=== PATIENT | female | born 1960 | race Caucasian/White ===

== ENCOUNTER → 2023-03-27 06:28 | Day surgery (SDC) | payer BC, SELFPAY | LOC: GI 06:28 | PROVIDERS: ATTENDING PHYSICIAN Specialist; FAMILY PHYSICIAN Family Medicine | DX: Z12.11 Encounter for screening for malignant neoplasm of colon (principal); Z98.0 Intestinal bypass and anastomosis status; K57.30 Diverticulosis of large intestine without perforation or abscess without bleeding; Z86.010 Personal history of colon polyps | CPT/HCPCS: G0105 ==

== ENCOUNTER → 2023-04-15 10:48 | Outpatient (REF) | payer BC, SELFPAY | LOC: HWRAD 10:48 | PROVIDERS: ATTENDING PHYSICIAN Family Medicine | DX: M25.552 Pain in left hip (principal) | CPT/HCPCS: 73502 ==

== ENCOUNTER → 2023-10-10 07:17 | Outpatient (REF) | payer BC, SELFPAY | LOC: HWWDC 07:17 | PROVIDERS: ATTENDING PHYSICIAN Nurse Practitioner Adult Health; FAMILY PHYSICIAN Family Medicine | DX: Z12.31 Encounter for screening mammogram for malignant neoplasm of breast (principal) | CPT/HCPCS: 77063; 77067 ==

== ENCOUNTER 2024-04-25 10:23 | Emergency (ER) | payer BC, SELFPAY ==
[2024-04-25 10:27] VITALS: BP 166/79
[2024-04-25 11:00] VITALS: BMI 31.2
--- NOTE | 2024-04-25 11:05 | ED.GENMED ---
History of Present Illness
General
Chief Complaint: Fall
Source: patient
Exam Limitations: none
Time Seen by Provider: 04/25/24 10:57
Nursing documentation reviewed up to this point in time: agreed with
History of Present Illness
History of Present Illness:
Patient is a 64-year-old female who presents to the ER complaining of right shoulder pain. She reports she tripped and tried to brace her fall with her arm and landed on the outstretched arm and now complains of right shoulder pain. She denies any
neck back pain. She denies hitting her head no other injuries or complaints.
Past History
Past History
ED Past Medical History: HTN
Social History
Tobacco: Non-smoker
Alcohol: Occasional
Family History
Family History: Negative Diabetes, Hypertension or CAD
Review of Systems
Review of Systems
Allergies reviewed?: Yes
All Other Systems: ROS reviewed and negative except as documented in HPI and ROS
Constitutional: Reports no symptoms
Musculoskeletal: Reports other (right shoulder pain )
Skin: Reports no symptoms
Psychiatric: Reports no symptoms
Phy Exam
General Physical Exam
General Presentation: no apparent distress
General age: appears stated age
General Skin: warm and dry
General Habitus: normal
General Mental: alert
General Hydration: appears well hydrated
Neurological Exam
Neurological Exam: alert and oriented x3
Musculoskeletal Exam
Musculoskeletal Exam: other (non tender to right shoulder; no bony tenderness no swelling no ecchymosis; pain with shoulder abduction strong distal pulses )
Skin Exam
Skin Exam: normal color and warm/dry
Psychiatric Exam
Psychiatric Exam: normal mood/affect
Course
Orders/Labs/Results
Orders:
Orders
04/25/24 11:04
Shoulder, Right, Trauma [CR Shoulder, Trauma - Right] Urgent
Comment:
Reason For Exam: trauma
04/25/24 11:54
Sling Right-Treatment ONCE
Vital Signs
Initial and Last Documented VS:
Initial Vital Signs
Temp Pulse Resp BP Pulse Ox
97.9 F 61 16 166/79 99
04/25/24 10:27 04/25/24 10:27 04/25/24 10:27 04/25/24 10:27 04/25/24 10:27
Last Documented Vital Signs
Temp Pulse Resp BP Pulse Ox
97.9 F 61 16 166/79 99
04/25/24 10:27 04/25/24 10:27 04/25/24 10:27 04/25/24 10:27 04/25/24 10:27
MDM/Problems Addressed
Differential Diagnosis Includes:
Not limited to rotator cuff injury fracture shoulder sprain strain
MDM/Problems Addressed:
Symptoms are consistent with sprain strain injury no obvious fracture will DC with RICE / with sling and Ortho if need
*Radiology
Radiology exam reviewed: radiology read reviewed
*Pulse Oximetry
Patient hypoxic: no
*Critical Care Note
Total Time (30-74mins, 75-104mins- exclusive of procedures): Not Applicable
ED Attending Note
-
Portions of this chart may have been created with voice recognition software.� Occasional wrong word or��sound alike� substitutions may have occurred due to the inherent limitations of voice recognition software.
Discharge Plan
Departure
Patient Disposition: Home (Routine Discharge)
Date of Disposition: 04/25/24
Time of Disposition: 11:57
Patient with high blood pressure during this ER visit?: Yes
Covid-19: Not Applicable
Discharge Problem:
Shoulder sprain
Instructions: Shoulder Sprain (DC), Shoulder pain - ED discharge instructions, BLOOD PRESSURE
Prescriptions:
No Action
acetaminophen [Tylenol Extra Strength] 500 MG tablet
1,000 mg PO Q6HPRN PRN (Reason: pain)
lisinopril-hydrochlorothiazide 1 EACH tablet
1 ea PO DAILY
ibuprofen 200 MG tablet
400 mg PO Q6HPRN PRN (Reason: pain)
Referrals:
Idris Mitchell MD [Active] -
Brenda Will, [Family Provider] -
Activity Restrictions/Additional Instructions:
As discussed ice affected area for first 24 hrs 20 minutes at a time several times a day.
Wear sling for support , remove several times a day and do gently range of motion exercises.
Tylenol or Ibuprofen as needed for pain/inflammation .
Follow up with orthopedics in the next several days.
Return if any worsening of symptoms.
Interventions
Interventions:
*Risk Screen - Suicide Last Done: 04/25/24 10:28
*General Assessment Last Done: 04/25/24 11:02
*Neglect/Abuse Screening Last Done: 04/25/24 10:28
ED- Fall Risk Assessment Last Done: 04/25/24 11:01
*ED COVID-19 Vaccine History Last Done: 04/25/24 11:02
*Nursing Disposition Last Done: 04/25/24 12:16
ED-Musculoskeletal Assessment Last Done: 04/25/24 11:01
ED- Neurological Assessment Last Done: 04/25/24 11:01
ED-Skin Assessment Last Done: 04/25/24 11:01
Discharge Date and Time
Discharge Date/Time: 04/25/24 12:17
Print Language: UKRAINIAN
== END 2024-04-25 12:17 | disposition home or self-care (01) ==
LOC: EMR 10:23
PROVIDERS: EMERGENCY PHYSICIAN Emergency Medicine; FAMILY PHYSICIAN Family Medicine
DX: S43.401A Unspecified sprain of right shoulder joint, initial encounter (principal); W01.0XXA Fall on same level from slipping, tripping and stumbling without subsequent striking against object, initial encounter; I10 Essential (primary) hypertension
CPT/HCPCS: 99283; 73030

== ENCOUNTER 2024-05-13 06:09 | Day surgery (SDC) | payer BC, SELFPAY ==
[2024-05-07 08:41] LABS: Hematocrit 43.7 % (37.0-47.0); Hemoglobin 14.9 g/dL (12.0-16.0); Mean Corp Hgb Conc. 34.1 g/dL (33.0-37.0); Mean Corpuscular Volume 93.8 fL (81.0-99.0); Platelet Count 240 10^3/uL (130-400); Red Blood Cell Count 4.66 10^6/uL (4.20-5.40); Red Cell Dist. Width 12.7 % (11.5-14.5); White Blood Cell Count 7.6 10^3/uL (4.8-10.8)
[2024-05-07 09:10] LABS: Blood Urea Nitrogen 19 mg/dl (7-17); Calcium 9.8 mg/dl (8.4-10.2); Carbon Dioxide 27 mmol/L (22-30); Chloride 102 mmol/L (98-107); Glucose 103 mg/dl (70-99); Potassium 4.4 mmol/L (3.5-5.1); Sodium 139 mmol/L (135-145); eGFR > 60.00
[2024-05-07 14:04] VITALS: BMI 30.8
[2024-05-13] VITALS (10 sets, daily range): BP systolic 112–149; BP diastolic 68–83; BMI 30.8
[2024-05-13] MEDS: TYLENOL 1000 MG PO (08:34)
[2024-05-13] MEDS: CELEBREX 200 MG PO (08:34)
[2024-05-13] MEDS: NORMOSOL-R/PLASMALYTE-A 1000 IV (08:40)
== END 2024-05-13 13:00 | disposition home or self-care (01) ==
LOC: SDS 06:09
PROVIDERS: ATTENDING PHYSICIAN Orthopaedic Surgery Hand Surgery; FAMILY PHYSICIAN Family Medicine
DX: M75.121 Complete rotator cuff tear or rupture of right shoulder, not specified as traumatic (principal); M75.41 Impingement syndrome of right shoulder; M19.011 Primary osteoarthritis, right shoulder; M75.21 Bicipital tendinitis, right shoulder
CPT/HCPCS: 29827; 36415; 80048; 85027; 93005; C1713

== ENCOUNTER → 2024-10-12 07:21 | Outpatient (REF) | payer BC, SELFPAY | LOC: HWWDC 07:21 | PROVIDERS: ATTENDING PHYSICIAN Nurse Practitioner Adult Health; FAMILY PHYSICIAN Family Medicine | DX: Z12.31 Encounter for screening mammogram for malignant neoplasm of breast (principal) | CPT/HCPCS: 77063; 77067 ==